=== PATIENT | female | born 1955 | race Caucasian/White ===

== ENCOUNTER 2016-12-07 23:33 | Emergency (ER) | payer OTHER ==
--- NOTE | ~2016-12-07 | EKG ---
PATIENT: TERESA OBRIEN UNIT #: [id number] Ventricular Rate: 76 BPM Atrial Rate: 76 BPM P-R Interval: 172 ms QRS Duration: 74 ms Q-T Interval: 384 ms QTC Calculation(Bezet): 432 ms P [place]: 71 degrees Calculated R [place]: 74 degrees Calculated T [place]: 61 degrees Diagnosis Line: Normal sinus rhythm Diagnosis Line: Poor R wave progression questionable lead position Diagnosis Line: or body habitus Otherwise normal ECG Diagnosis Line: No previous ECGs available Diagnosis Line: Confirmed by GINETTE PEREZ MD ([id number]) on 12/08/2016 Diagnosis Line: 10:41:07 AM INTERPRETING MD: CHRIS SMITH
[~2016-12-07 23:33] MED LIST: ADVAIR; AMITRYPTYLINE PO; ATENOLOL PO; BENTYL20 MG PO; CIPRO; CIPRO PO; COUMADIN; DIAZEPAM PO; DITROPAN PO; FLEXERIL PO; LASIX PO; LEXAPRO PO; PERCOCET 7.5/321 TAB; PERCOCET10 PO; PHENERGAN; PREVACID PO; RELPAX20 MG PO; SEROQUEL XR200 MG PO
[2016-12-08 01:16] LABS: BASOPHIL# 0.1 X10e3 (0-0.3); EOSINOPHIL# 0.2 X10e3 (0-0.7); EOSINOPHIL% 3.3 % (0.0-7.0); HEMATOCRIT 38.2 % (35.0-45.0); HEMOGLOBIN 12.4 gm/dL (12.0-16.0); LYMPHOCYTE# 1.7 X10e3 (1.0-3.5); LYMPHOCYTE% 26.6 % (17.0-45.0); MEAN CELL VOLUME 90.3 FL (83-96); MEAN CORPUSCULAR HEMOGLOBIN 29.2 PG (28-34); MEAN CORPUSCULAR HGB CONC 32.4 g/dL (30-36); MEAN PLATELET VOLUME 8.6 FL (6.5-11.5); MONOCYTE# 0.6 X10e3 (0-1.0); MONOCYTE% 9.6 % (3.0-12.0); NEUTROPHIL# 3.8 X10e3 (1.5-7.1); NEUTROPHIL% 59.5 % (40-75); PLATELET COUNT 178 X10e3 (140-420); RED BLOOD COUNT 4.23 X10e (3.90-5.30); RED CELL DISTRIBUTION WIDTH 14.5 % (11.0-15.5); WHITE BLOOD COUNT 6.4 X10e3 (4.0-10.5)
[2016-12-08 01:17] LABS: DIFF IND NO
[2016-12-08 01:42] LABS: ALBUMIN SERUM 3.6 g/dL (3.5-5.0); BILIRUBIN, DIRECT 0.6 mg/dL (0.0-0.2); BILIRUBIN,INDIRECT 1.2 mg/dL (0.0-0.9); BILIRUBIN,TOTAL 1.8 mg/dL (0.2-2.0); BUN/CREATININE RATIO 16.36; CALCIUM SERUM 8.7 mg/dL (8.4-10.2); CREATININE SERUM 1.1 mg/dL (0.6-1.4); GLOM FILT RATE Estimated 53.4 mL/min (>60); POTASSIUM 4.3 mmol/L (3.5-5.1); PROTEIN TOTAL SERUM 6.3 g/dL (6.0-8.3)
[2016-12-08 02:37] LABS: POC - CKMB 1.8 ng/mL (0.0-7.9); POC - TROPONIN <0.05 ng/mL (<=0.05)
== END 2016-12-08 05:58 | disposition home or self-care (01) ==
LOC: CED 23:33
PROVIDERS: Emergency Medicine
DX: R60.0 Localized edema (principal); G43.909 Migraine, unspecified, not intractable, without status migrainosus; Z90.710 Acquired absence of both cervix and uterus; Z90.49 Acquired absence of other specified parts of digestive tract; Z88.0 Allergy status to penicillin
CPT/HCPCS: 36415; 80048; 80076; 82553; 84484; 85025; 85379; 93005; 99283

== ENCOUNTER 2017-01-29 21:13 | Emergency (ER) | payer OTHER ==
--- NOTE | ~2017-01-29 | US85 ---
[facility] A Service of [facility] RADIOLOGY TEXT RESULTS PATIENT: TERESA OBRIEN LOCATION: [place] : 51 UNIT #: [id number] AGE: [address]: Kyle Montalvo MD SEX: F ORDER DR: [id number] [facility] [address] [place], [place] [address] [id number] MR#: [id number] Acc #: [id number] NAME: TERESA OBRIEN : 1955 SEX: F STUDY DATE/TIME: 01/29/2017 23:43 UNIT: [facility] ROOM: STUDY DESCRIPTION: [facility] Attending Physician: Kyle Montalvo M.D. Ordering Physician: Kyle Montalvo M.D. Primary Care Physician: Primary Care Physician No MEDICAL IMAGING REPORT This report is preliminary unless electronic signature is present EXAM Left lower extremity venous ultrasound HISTORY Left leg pain for 3 months. TECHNIQUE Venous ultrasound examination of the left lower extremity was performed using grayscale, spectral Doppler and color flow Doppler imaging. FINDINGS The examination is negative. There is no evidence of left lower extremity deep venous thrombus from the groin to the lower calf. Visualized greater saphenous vein is also patent. IMPRESSION Negative examination. No evidence of left lower extremity deep venous thrombosis. Dictated by... Jacob Harris M.D. THIS IS AN ELECTRONICALLY VERIFIED REPORT Jacob Harris M.D. at 01/30/2017 1:36 PM KATHI/leilani TD: 01/30/2017 12:41 JOB #: [id number] [facility] A Service of [facility] RADIOLOGY TEXT RESULTS PATIENT: TERESA OBRIEN LOCATION: [place] : 51 UNIT #: [id number] AGE: [address]: Kyle Montalvo MD SEX: F ORDER DR: MEDICAL IMAGING REPORT Page 1 of 1 COPY
== END 2017-01-30 00:45 | disposition home or self-care (01) ==
LOC: CED 21:13
DX: R60.0 Localized edema (principal); Z86.718 Personal history of other venous thrombosis and embolism; Z87.442 Personal history of urinary calculi; Z88.0 Allergy status to penicillin; Z79.899 Other long term (current) drug therapy
CPT/HCPCS: 93971; 99284